=== PATIENT | female | born 1980 | race Caucasian/White ===

== ENCOUNTER 2021-09-20 08:23 | Emergency (ER) | payer BC ==
[2021-09-20] MEDS ORDERED: Lidocaine 1% 5 ML VIAL INJECT ONE (08:58)
[2021-09-20 09:14] VITALS: BP 116/72; PULSE 87
[2021-09-20] MEDS ORDERED: Diphtheria,Pertussis(Acell),Tetanus Vaccine 0.5 ML Syringe IM ONE (09:20)
[2021-09-20] MEDS ORDERED: Bacitracin Oint 1 GM U/D Packet TOP ONE (09:27)
== END 2021-09-20 09:44 | disposition home or self-care (01) ==
LOC: LL.ED 08:23
DX: S61.412A Laceration without foreign body of left hand, initial encounter (principal); Z23 Encounter for immunization; W26.0XXA Contact with knife, initial encounter
CPT/HCPCS: 90471; 90715; 99282